=== PATIENT | male | born 1950 | race Caucasian/White ===

== ENCOUNTER 2024-07-12 10:28 | Emergency (ER) | payer MEDICARE ==
[~2024-07-12] VITALS: Ht 157.5 cm; Wt 76.6 kg
[2024-07-12] MEDS ORDERED: ISOVUE-370 76% 100ML VIAL As Ordered ONE (10:54)
[2024-07-12] MEDS: fentaNYL 100 MCG/2 ML INJECTION IV PRN (11:10)
[2024-07-12] MEDS: NS (Normal Saline) 0.9% 1,000 ML IV ONE (11:11)
[2024-07-12] MEDS: NITROGLYCERIN/D5W 100MCG/ML 25 MG in IV 1 EA IV SCH (11:13)
[2024-07-12] MEDS: HEPARIN SOD (PORCINE) 5000UNITS/ML 1ML VIAL/SYRINGE IV ONE (11:25)
[2024-07-12] MEDS: CLOPIDOGREL 300 MG TAB (PLAVIX) PO ONE (11:26)
[2024-07-12] MEDS: FAMOTIDINE 20 MG TAB PO ONE (11:26)
[2024-07-12] MEDS: HEPARIN DRIP 25,000 UNITS in IV 1 EA IV SCH (11:26)
[2024-07-12 11:33] LABS: INR 0.98; PROTHROMBIN TIME 13.3 SECONDS (12.5-14.5)
[2024-07-12] MEDS: TENECTEPLASE 50 MG/10 ML VIAL IV STA (11:37)
[2024-07-12 11:47] LABS: CK-MB VALUE MASS 5.9 NG/ML (<3.6)
[2024-07-12 11:49] VITALS: BP 108/61; TEMP 96.7
[2024-07-12 11:50] LABS: ALBUMIN 3.7 G/DL (3.2-5.2); BILIRUBIN,DIRECT 0.3 MG/DL (<0.4); BILIRUBIN,TOTAL 0.9 MG/DL (0.3-1.2); CALCIUM LEVEL 9.4 MG/DL (8.3-10.6); CREATININE FOR GFR 1.31 MG/DL (0.70-1.30); GLOMERULAR FILTRATION RATE 57.1 (>42); TOTAL PROTEIN 6.4 G/DL (5.7-8.2)
[2024-07-12 11:51] VITALS: O2SAT 95
[2024-07-12 11:51] LABS: THYROID STIMULATING HORMONE 1.529 uIU/ML (0.55-4.78)
[2024-07-12 11:52] LABS: FREE T4 1.3 NG/DL (0.89-1.76)
[2024-07-12 11:55] LABS: BASO % 0.6 % (0.0-1.0); EOS # 0.1 10^3/uL (0.0-0.5); EOS % 1.2 % (0.0-3.0); HEMATOCRIT 44.9 % (42.0-52.0); HEMOGLOBIN 14.7 g/dl (13.5-17.5); LYMPH # 1.9 10^3/uL (1.5-5.0); LYMPH % 29.3 % (24.0-44.0); MEAN CORPUSCULAR HEMOGLOBIN 30.4 pg (27.0-33.0); MEAN CORPUSCULAR HGB CONC 32.7 g/dl (32.0-36.5); MONO # 0.5 10^3/uL (0.0-0.8); MONO % 7.5 % (2.0-8.0); NEUTROPHILS # 4.1 10^3/uL (1.5-8.5); NEUTROPHILS % 61.1 % (36.0-66.0); PLATELET COUNT, AUTOMATED 209 10^3/uL (150-450); RED BLOOD COUNT 4.83 10^6/uL (4.30-6.10); WHITE BLOOD COUNT 6.6 10^3/uL (4.0-10.0)
[2024-07-12 12:10] LABS: MB/CK RELATIVE INDEX 4.95 (< OR =4)
== END 2024-07-12 12:11 | disposition short-term general hospital (02) ==
LOC: M ED 10:28 → EDBD 10:28 → M ED 12:11
DX: I21.3 ST elevation (STEMI) myocardial infarction of unspecified site (principal); I25.119 Atherosclerotic heart disease of native coronary artery with unspecified angina pectoris; I25.2 Old myocardial infarction; F10.10 Alcohol abuse, uncomplicated
CPT/HCPCS: 71045; 71275; 80047; 80048; 80076; 82550; 82553; 83690; 83880; 84439; 84443; 84484; 85025; 85610; 85730; 93005; 93041; 94760; 96365; 96375; 96376; 99291; 99292; J2305; J3010; J3101; Q9967

== ENCOUNTER 2024-08-28 16:17 | Observation (INO) | payer MEDICARE ==
[~2024-08-28] VITALS: Ht 177.8 cm; Wt 65.8 kg
[2024-08-28] MEDS ORDERED: ISOVUE-370 76% 100 ML VIAL As Ordered ONE (16:40)
[2024-08-28 17:00] LABS: BASO % 0.5 % (0.0-1.0); EOS # 0.1 10^3/uL (0.0-0.5); EOS % 0.8 % (0.0-3.0); HEMATOCRIT 46.9 % (42.0-52.0); HEMOGLOBIN 16.4 g/dl (13.5-17.5); LYMPH # 1.2 10^3/uL (1.5-5.0); LYMPH % 15.5 % (24.0-44.0); MEAN CORPUSCULAR HEMOGLOBIN 32.1 pg (27.0-33.0); MEAN CORPUSCULAR VOLUME 91.8 fl (80.0-96.0); MONO # 0.6 10^3/uL (0.0-0.8); MONO % 7.4 % (2.0-8.0); NEUTROPHILS % 75.5 % (36.0-66.0); PLATELET COUNT, AUTOMATED 257 10^3/uL (150-450); RED BLOOD COUNT 5.11 10^6/uL (4.30-6.10)
[2024-08-28] MEDS: NS 500 ML IV ONE (17:46)
[2024-08-28 18:15] LABS: INR 1.03; PARTIAL THROMBOPLASTIN TIME 20.5 SECONDS (24.8-34.2); PROTHROMBIN TIME 13.8 SECONDS (12.5-14.5)
[2024-08-28] MEDS: NS (Normal Saline) 0.9% 1,000 ML IV SCH (18:19)
[2024-08-28 18:22] LABS: MAGNESIUM LEVEL 1.8 MG/DL (1.8-2.4)
[2024-08-28] MEDS ORDERED: ROSU40TA81 PO (18:22)
[2024-08-28] MEDS ORDERED: AMIO200T54 PO (18:22)
[2024-08-28] MEDS ORDERED: PANT40TA29 PO (18:24)
[2024-08-28] MEDS ORDERED: ASPI81TA26 PO (18:24)
[2024-08-28] MEDS ORDERED: CLOP75TA2 PO (18:24)
[2024-08-28] MEDS ORDERED: LOTR52CA PO (18:26)
[2024-08-28] MEDS ORDERED: METO1TAB32 PO (18:26)
[2024-08-28] MEDS ORDERED: HOME MED LIST COMPLETE! XX SCH (18:30)
[2024-08-28] MEDS ORDERED: MAALOX 30 ML SUSP *UDC PO PRN (20:05)
[2024-08-28] MEDS ORDERED: MOM 30 ML SUSPENSION UDC PO PRN (20:05)
[2024-08-28 20:39] LABS: ALBUMIN 2.8 G/DL (3.2-5.2); BILIRUBIN,DIRECT 0.3 MG/DL (<0.4); BILIRUBIN,TOTAL 0.9 MG/DL (0.3-1.2); CALCIUM LEVEL 6.4 MG/DL (8.3-10.6); CK-MB VALUE MASS 1.1 NG/ML (<3.6); CREATININE FOR GFR 1.4 MG/DL (0.70-1.30); GLOMERULAR FILTRATION RATE 52.7 (>42); MB/CK RELATIVE INDEX 1.5 (< OR =4); POTASSIUM SERUM 5.7 MMOL/L (3.5-5.1)
[2024-08-28 22:50] VITALS: BP 120/58; TEMP 97.2; O2SAT 95
[2024-08-28] MEDS: DOCUSATE SODIUM 100 MG CAPSULE PO SCH (22:50)
[2024-08-28] MEDS: ACETAMINOPHEN 325 MG TAB PO PRN (22:58)
[2024-08-29] VITALS (12 sets, daily range): BP systolic 90–99; BP diastolic 54–71; TEMP 97–98.7; O2SAT 96–99
[2024-08-29 07:14] LABS: HEMATOCRIT 42.5 % (42.0-52.0); HEMOGLOBIN 14.2 g/dl (13.5-17.5); MEAN CORPUSCULAR HEMOGLOBIN 31.4 pg (27.0-33.0); MEAN CORPUSCULAR HGB CONC 33.4 g/dl (32.0-36.5); PLATELET COUNT, AUTOMATED 191 10^3/uL (150-450); RED BLOOD COUNT 4.52 10^6/uL (4.30-6.10); WHITE BLOOD COUNT 6.7 10^3/uL (4.0-10.0)
[2024-08-29 07:44] LABS: ALBUMIN 3.1 G/DL (3.2-5.2); BILIRUBIN,TOTAL 1.1 MG/DL (0.3-1.2); CALCIUM LEVEL 8.6 MG/DL (8.3-10.6); CREATININE FOR GFR 1.76 MG/DL (0.70-1.30); GLOMERULAR FILTRATION RATE 40.1 (>42); MAGNESIUM LEVEL 2.1 MG/DL (1.8-2.4); POTASSIUM SERUM 3.5 MMOL/L (3.5-5.1); TOTAL PROTEIN 5.2 G/DL (5.7-8.2)
[2024-08-29] MEDS: ASPIRIN 81 MG ENTERIC TABLET PO SCH (09:21)
[2024-08-29] MEDS: PANTOPRAZOLE 40MG TAB PO SCH (09:21)
[2024-08-29] MEDS: CLOPIDOGREL 75 MG TAB PO SCH (09:21)
[2024-08-29] MEDS: ROSUVASTATIN 10 MG TAB PO SCH (09:22)
[2024-08-29] MEDS: HEPARIN SOD 5000 UNITS/ML 1 ML VIAL/SYRINGE SC SCH (09:22)
[2024-08-29] MEDS: NS 500 ML IV ONE ×2 (11:30→12:00)
[2024-08-29] MEDS: MIDODRINE 5 MG TAB PO ONE ×2 (11:53→20:56)
[2024-08-29 14:39] LABS: CALCIUM LEVEL 8.1 MG/DL (8.3-10.6); CREATININE FOR GFR 1.76 MG/DL (0.70-1.30); GLOMERULAR FILTRATION RATE 40.1 (>42); POTASSIUM SERUM 3.3 MMOL/L (3.5-5.1)
[2024-08-29] MEDS ORDERED: MIDO5TA PO (14:49)
[2024-08-29] MEDS: KCL 10MEQ/100ML SWI (KRUN) 10 MEQ in IV 1 EA IV SCH (16:17)
[2024-08-29] MEDS: POTASSIUM CHLORIDE 10MEQ SR TABLET PO ONE (17:28)
[2024-08-30] VITALS (8 sets, daily range): BP systolic 76–114; BP diastolic 52–67; TEMP 96.3–97.8; O2SAT 96–100
[2024-08-30 07:39] LABS: BASO # 0.1 10^3/uL (0.0-0.2); BASO % 0.9 % (0.0-1.0); EOS # 0.1 10^3/uL (0.0-0.5); HEMATOCRIT 41.7 % (42.0-52.0); HEMOGLOBIN 13.4 g/dl (13.5-17.5); LYMPH # 1.5 10^3/uL (1.5-5.0); LYMPH % 26.1 % (24.0-44.0); MEAN CORPUSCULAR HEMOGLOBIN 30.5 pg (27.0-33.0); MEAN CORPUSCULAR HGB CONC 32.1 g/dl (32.0-36.5); MEAN CORPUSCULAR VOLUME 94.8 fl (80.0-96.0); MONO # 0.4 10^3/uL (0.0-0.8); MONO % 6.7 % (2.0-8.0); NEUTROPHILS # 3.6 10^3/uL (1.5-8.5); NEUTROPHILS % 64.1 % (36.0-66.0); PLATELET COUNT, AUTOMATED 203 10^3/uL (150-450); WHITE BLOOD COUNT 5.6 10^3/uL (4.0-10.0)
[2024-08-30 07:58] LABS: CALCIUM LEVEL 8.6 MG/DL (8.3-10.6); CREATININE FOR GFR 1.79 MG/DL (0.70-1.30); GLOMERULAR FILTRATION RATE 39.3 (>42); MAGNESIUM LEVEL 2.1 MG/DL (1.8-2.4); POTASSIUM SERUM 4.2 MMOL/L (3.5-5.1)
[2024-08-30] MEDS: MIDODRINE 5 MG TAB PO SCH ×2 (08:42→16:06)
[2024-08-30] MEDS: NS (Normal Saline) 0.9% 1,000 ML IV ONE (12:53)
[2024-08-30] MEDS: MIDODRINE 5 MG TAB PO ONE (13:18)
[2024-08-30 14:38] LABS: APPEARANCE, URINE CLOUDY (CLEAR); BACTERIA, URINE AUTO NEGATIVE (NEGATIVE); BILIRUBIN, URINE AUTO NEGATIVE (NEGATIVE); BLOOD, URINE BLOOD 1+ (NEGATIVE); COLOR, URINE AMBER (YELLOW); GLUCOSE, URINE (UA) AUTO NEGATIVE (NEGATIVE); GRANULAR CAST, URINE AUTO 7 /LPF; KETONE, URINE AUTO TRACE mg/dL (NEGATIVE); LEUKOCYTE ESTERASE, URINE AUTO NEGATIVE (NEGATIVE); MUCUS, URINE LARGE (NEGATIVE); NITRITE, URINE AUTO NEGATIVE (NEGATIVE); PROTEIN, URINE AUTO 2+ mg/dL (NEGATIVE); RBC, URINE AUTO 6 /HPF (0-3); SPECIFIC GRAVITY URINE AUTO 1.023 (1.002-1.035); SQUAMOUS EPITHELIAL CELL UR AU 1 /HPF (0-6); WBC, URINE AUTO 21 /HPF (0-3)
[2024-08-30] MEDS ORDERED: MIDO5TA PO (17:32)
== END 2024-08-30 16:50 | disposition home or self-care (01) ==
LOC: EDBD 16:17 → M ED 16:17 → UNDOADMOB 20:04 → INTOOBSV 20:04 → M ED INP 20:04 → M MS4PR 22:42 → M ED INP 22:42 → M MS4PR 22:42
PROVIDERS: ADMIT Student in an Organized Health Care Education/Training Program; ATTEND Student in an Organized Health Care Education/Training Program
DX: R55 Syncope and collapse (principal); R94.31 Abnormal electrocardiogram [ECG] [EKG]; R00.1 Bradycardia, unspecified; R42 Dizziness and giddiness; N17.9 Acute kidney failure, unspecified; N28.89 Other specified disorders of kidney and ureter; E87.6 Hypokalemia; I25.10 Atherosclerotic heart disease of native coronary artery without angina pectoris; Z95.1 Presence of aortocoronary bypass graft; K21.9 Gastro-esophageal reflux disease without esophagitis; I50.32 Chronic diastolic (congestive) heart failure; N40.0 Benign prostatic hyperplasia without lower urinary tract symptoms; M17.0 Bilateral primary osteoarthritis of knee; I11.0 Hypertensive heart disease with heart failure; E55.9 Vitamin D deficiency, unspecified; E78.5 Hyperlipidemia, unspecified; Z96.642 Presence of left artificial hip joint; Z96.653 Presence of artificial knee joint, bilateral; Z90.79 Acquired absence of other genital organ(s); Z79.899 Other long term (current) drug therapy; Z79.82 Long term (current) use of aspirin; Z79.02 Long term (current) use of antithrombotics/antiplatelets; Z11.9 Encounter for screening for infectious and parasitic diseases, unspecified
CPT/HCPCS: 36415; 70450; 71045; 76775; 80047; 80048; 80053; 80076; 81001; 82550; 82553; 83735; 84484; 85025; 85027; 85610; 85730; 93005; 93041; 93306; 93880; 94760; 96361; 96365; 97161; 99285; G0378

== ENCOUNTER 2024-09-13 17:37 | Inpatient (IN) | payer MEDICARE ==
[~2024-09-13] VITALS: Ht 177.8 cm; Wt 69.6 kg
[~2024-09-13 17:37] MED LIST: AMIO200T54 PO; ASPI81TA26 PO; CLOP75TA2 PO; LOTR52CA PO; METO1TAB32 PO; MIDO5TA PO; PANT40TA29 PO; ROSU40TA81 PO
[2024-09-13 18:33] LABS: BASO # 0.0 10^3/uL (0.0-0.2); BASO % 0.2 % (0.0-1.0); EOS # 0.0 10^3/uL (0.0-0.5); EOS % 0.1 % (0.0-3.0); LYMPH # 0.6 10^3/uL (1.5-5.0); LYMPH % 5.7 % (24.0-44.0); MONO # 0.5 10^3/uL (0.0-0.8); MONO % 4.3 % (2.0-8.0); NEUTROPHILS # 9.6 10^3/uL (1.5-8.5); NEUTROPHILS % 89.4 % (36.0-66.0); PLATELET COUNT, AUTOMATED 255 10^3/uL (150-450)
[2024-09-13 18:44] LABS: INR 0.89
[2024-09-13 18:54] LABS: ALT/SGPT 478.0 U/L (7.0-40); AST/SGOT 259.0 U/L (<34); CALCIUM LEVEL 9.5 MG/DL (8.3-10.6); CARBON DIOXIDE LEVEL 25.0 MMOL/L (20-31); CHLORIDE LEVEL 105.0 MMOL/L (98-107); CK-MB VALUE MASS 2.4 NG/ML (<3.6); CREATININE FOR GFR 1.37 MG/DL (0.70-1.30); GLOMERULAR FILTRATION RATE 54.1 (>42); POTASSIUM SERUM 3.3 MMOL/L (3.5-5.1); SODIUM LEVEL 142.0 MMOL/L (136-145)
[2024-09-13 18:58] LABS: CPK CREATINE PHOSPHOKINASE 27.0 U/L (46-171); MB/CK RELATIVE INDEX 8.88 (< OR =4)
[2024-09-13] MEDS: ASPIRIN 81 MG CHEWABLE TABLET PO ONE (19:13)
[2024-09-13] MEDS: POTASSIUM CHLORIDE 10MEQ SR TABLET PO ONE (19:14)
[2024-09-13] MEDS: NITROGLYCERIN 0.4 MG SUBL TABLET SL PRN (19:17)
[2024-09-13] MEDS ORDERED: ISOVUE-370 76% 100 ML VIAL As Ordered ONE (19:22)
[2024-09-13 20:00] LABS: CK-MB VALUE MASS 1.9 NG/ML (<3.6)
[2024-09-13 20:04] LABS: CPK CREATINE PHOSPHOKINASE 18.0 U/L (46-171); MB/CK RELATIVE INDEX 10.55 (< OR =4)
[2024-09-13] MEDS: LIDOCAINE VISCOUS 2% SOLN 15 ML UDC PO ONE (21:14)
[2024-09-13] MEDS: MAALOX 30 ML SUSP *UDC PO ONE (21:14)
[2024-09-13] MEDS: PANTOPRAZOLE 40MG VIAL IV ONE (21:15)
[2024-09-13 22:10] LABS: CK-MB VALUE MASS 2.0 NG/ML (<3.6)
[2024-09-13 22:11] LABS: CPK CREATINE PHOSPHOKINASE 17.0 U/L (46-171); MB/CK RELATIVE INDEX 11.76 (< OR =4)
[2024-09-13] MEDS: PIPERACILLIN/TAZOBACTAM SOD 4.5 GM in DEXTROSE 5% (D5W) ADV/MINI-BAG 50 ML IV ONE (23:07)
[2024-09-14] VITALS (8 sets, daily range): BP systolic 100–117; BP diastolic 55–73; TEMP 97.3–97.9; O2SAT 95–100
[2024-09-14] MEDS ORDERED: MORPHINE 2 MG/ML 1 ML VIAL IV PRN (00:10)
[2024-09-14] MEDS ORDERED: MORPHINE 4 MG/ML 1 ML VIAL IV PRN (00:10)
[2024-09-14] MEDS ORDERED: NALOXONE INJ 0.4 MG/1 ML VIAL IV PRN (00:10)
[2024-09-14] MEDS: ACETAMINOPHEN *IV* 1,000 MG in IV 1 EA IV SCH (01:01)
[2024-09-14] MEDS: RAMELTEON 8 MG TAB PO PRN (01:01)
[2024-09-14] MEDS: NS (Normal Saline) 0.9% 1,000 ML IV SCH (01:03)
[2024-09-14] MEDS: PIPERACILLIN/TAZOBACTAM SOD 3.375 GM in DEXTROSE 5% (D5W) ADV/MINI-BAG 50 ML IV SCH (06:06)
[2024-09-14] MEDS ORDERED: AMLO2.5C6 PO (06:29)
[2024-09-14] MEDS ORDERED: MIDO5TA PO (06:29)
[2024-09-14] MEDS ORDERED: HOME MED LIST COMPLETE! XX SCH (06:35)
[2024-09-14 11:57] LABS: BASO # 0.0 10^3/uL (0.0-0.2); BASO % 0.2 % (0.0-1.0); EOS # 0.0 10^3/uL (0.0-0.5); EOS % 0.1 % (0.0-3.0); LYMPH # 0.9 10^3/uL (1.5-5.0); LYMPH % 5.9 % (24.0-44.0); MONO # 0.9 10^3/uL (0.0-0.8); MONO % 5.9 % (2.0-8.0); NEUTROPHILS # 13.8 10^3/uL (1.5-8.5); NEUTROPHILS % 87.5 % (36.0-66.0); PLATELET COUNT, AUTOMATED 246 10^3/uL (150-450)
[2024-09-14 12:38] LABS: ALT/SGPT 356.0 U/L (7.0-40); AST/SGOT 141.0 U/L (<34); CALCIUM LEVEL 8.9 MG/DL (8.3-10.6); CARBON DIOXIDE LEVEL 23.0 MMOL/L (20-31); CHLORIDE LEVEL 107.0 MMOL/L (98-107); CREATININE FOR GFR 1.27 MG/DL (0.70-1.30); GLOMERULAR FILTRATION RATE 59.3 (>42); POTASSIUM SERUM 4.6 MMOL/L (3.5-5.1); SODIUM LEVEL 143.0 MMOL/L (136-145)
[2024-09-14] MEDS: PANTOPRAZOLE 40MG VIAL IV SCH (14:21)
[2024-09-14] MEDS: KETOROLAC 30 MG/ML 1 ML VIAL IV PRN (16:47)
[2024-09-14] MEDS: MIDODRINE 5 MG TAB PO SCH (16:48)
[2024-09-14] MEDS: ACETAMINOPHEN 325 MG TAB PO PRN (21:04)
[2024-09-15 04:14] VITALS: BP 95/63; TEMP 97.6; O2SAT 95
[2024-09-15 06:09] LABS: PLATELET COUNT, AUTOMATED 190 10^3/uL (150-450)
[2024-09-15 06:37] LABS: ALT/SGPT 285.0 U/L (7.0-40); AST/SGOT 103.0 U/L (<34); CALCIUM LEVEL 8.7 MG/DL (8.3-10.6); CARBON DIOXIDE LEVEL 20.0 MMOL/L (20-31); CHLORIDE LEVEL 108.0 MMOL/L (98-107); CREATININE FOR GFR 1.36 MG/DL (0.70-1.30); GLOMERULAR FILTRATION RATE 54.6 (>42); MAGNESIUM LEVEL 1.7 MG/DL (1.8-2.4); POTASSIUM SERUM 4.1 MMOL/L (3.5-5.1); SODIUM LEVEL 143.0 MMOL/L (136-145)
[2024-09-15] MEDS: ASPIRIN 81 MG ENTERIC TABLET PO SCH (08:37)
[2024-09-15] MEDS: MAG SULF 1GM/100ML (MAG RUN) 1 GM in IV 1 EA IV ONE (11:06)
[2024-09-15 12:00] VITALS: BP 88/52; TEMP 97.7; O2SAT 97
[2024-09-15] MEDS: NS (Normal Saline) 0.9% 1,000 ML IV ONE (14:59)
[2024-09-15] MEDS: NS (Normal Saline) 0.9% 1,000 ML IV SCH (18:51)
[2024-09-15 20:34] VITALS: BP 94/61; TEMP 97.9; O2SAT 95
[2024-09-16 04:27] VITALS: BP 92/59; TEMP 97.8; O2SAT 95
[2024-09-16 09:17] LABS: BASO # 0.0 10^3/uL (0.0-0.2); BASO % 0.2 % (0.0-1.0); EOS # 0.1 10^3/uL (0.0-0.5); EOS % 1.1 % (0.0-3.0); LYMPH # 0.8 10^3/uL (1.5-5.0); LYMPH % 6.5 % (24.0-44.0); MONO # 0.6 10^3/uL (0.0-0.8); MONO % 5.2 % (2.0-8.0); NEUTROPHILS # 10.5 10^3/uL (1.5-8.5); NEUTROPHILS % 86.4 % (36.0-66.0); PLATELET COUNT, AUTOMATED 180 10^3/uL (150-450)
[2024-09-16 09:43] LABS: ALT/SGPT 231.0 U/L (7.0-40); AST/SGOT 147.0 U/L (<34); CALCIUM LEVEL 8.0 MG/DL (8.3-10.6); CARBON DIOXIDE LEVEL 22.0 MMOL/L (20-31); CHLORIDE LEVEL 112.0 MMOL/L (98-107); CREATININE FOR GFR 1.6 MG/DL (0.70-1.30); GLOMERULAR FILTRATION RATE 44.9 (>42); MAGNESIUM LEVEL 2.1 MG/DL (1.8-2.4); POTASSIUM SERUM 3.7 MMOL/L (3.5-5.1); SODIUM LEVEL 146.0 MMOL/L (136-145)
[2024-09-16 12:00] VITALS: BP 90/52; TEMP 97.9; O2SAT 94
[2024-09-16] MEDS: ENOXAPARIN 40 MG/0.4 ML SYRINGE (J1650 PER 10MG) SC SCH (14:29)
[2024-09-16] MEDS: MIDODRINE 5 MG TAB PO SCH (16:22)
[2024-09-16 19:34] VITALS: BP 93/57; TEMP 97.9; O2SAT 92
[2024-09-17 03:49] VITALS: BP 104/64; TEMP 97.7; O2SAT 90
[2024-09-17 07:13] LABS: BASO # 0.0 10^3/uL (0.0-0.2); BASO % 0.3 % (0.0-1.0); EOS # 0.1 10^3/uL (0.0-0.5); EOS % 0.9 % (0.0-3.0); LYMPH # 0.8 10^3/uL (1.5-5.0); LYMPH % 8.9 % (24.0-44.0); MONO # 0.5 10^3/uL (0.0-0.8); MONO % 5.6 % (2.0-8.0); NEUTROPHILS # 7.9 10^3/uL (1.5-8.5); NEUTROPHILS % 84.0 % (36.0-66.0); PLATELET COUNT, AUTOMATED 204 10^3/uL (150-450)
[2024-09-17 07:40] LABS: ALT/SGPT 307 U/L (7.0-40); AST/SGOT 289 U/L (<34); CALCIUM LEVEL 7.8 MG/DL (8.3-10.6); CARBON DIOXIDE LEVEL 19 MMOL/L (20-31); CHLORIDE LEVEL 114 MMOL/L (98-107); CREATININE FOR GFR 1.49 MG/DL (0.70-1.30); GLOMERULAR FILTRATION RATE 48.9 (>42); MAGNESIUM LEVEL 2.1 MG/DL (1.8-2.4); POTASSIUM SERUM 3.7 MMOL/L (3.5-5.1); SODIUM LEVEL 144 MMOL/L (136-145)
[2024-09-17 09:24] LABS: HEPATITIS C VIRUS ABY INDEX 0.07 INDEX (<0.8)
[2024-09-17 12:00] VITALS: BP 108/67; TEMP 97.7; O2SAT 96
[2024-09-17 19:58] VITALS: BP 107/60; TEMP 97.9; O2SAT 92
[2024-09-18] VITALS (10 sets, daily range): BP systolic 95–120; BP diastolic 61–80; TEMP 97–97.7; O2SAT 90–95
[2024-09-18 05:48] LABS: BASO # 0.0 10^3/uL (0.0-0.2); BASO % 0.4 % (0.0-1.0); EOS # 0.2 10^3/uL (0.0-0.5); EOS % 1.7 % (0.0-3.0); LYMPH # 1.3 10^3/uL (1.5-5.0); LYMPH % 14.4 % (24.0-44.0); MONO # 0.6 10^3/uL (0.0-0.8); MONO % 6.5 % (2.0-8.0); NEUTROPHILS # 7.0 10^3/uL (1.5-8.5); NEUTROPHILS % 76.6 % (36.0-66.0); PLATELET COUNT, AUTOMATED 231 10^3/uL (150-450)
[2024-09-18 06:21] LABS: ALT/SGPT 315.0 U/L (7.0-40); AST/SGOT 270.0 U/L (<34); CALCIUM LEVEL 8.0 MG/DL (8.3-10.6); CARBON DIOXIDE LEVEL 19.0 MMOL/L (20-31); CHLORIDE LEVEL 113.0 MMOL/L (98-107); CREATININE FOR GFR 1.44 MG/DL (0.70-1.30); GLOMERULAR FILTRATION RATE 51.0 (>42); POTASSIUM SERUM 4.0 MMOL/L (3.5-5.1); SODIUM LEVEL 144.0 MMOL/L (136-145)
[2024-09-18] MEDS ORDERED: LIDOCAINE 2% 100 MG/5 ML SDV (FOR ANES.) As Ordered ONE (15:31)
[2024-09-18] MEDS ORDERED: SUGAMMADEX SODIUM 500 MG/5 ML VIAL As Ordered ONE (15:31)
[2024-09-18] MEDS ORDERED: dexAMETHasone 4 MG/ML 1 ML VIAL As Ordered ONE (15:31)
[2024-09-18] MEDS ORDERED: ROCURONIUM BROMIDE 50MG/5ML VIAL As Ordered ONE (15:31)
[2024-09-18] MEDS ORDERED: ONDANSETRON 4MG 2ML VIAL As Ordered ONE (15:31)
[2024-09-18] MEDS ORDERED: MIDAZOLAM INJ 2 MG/2 ML VIAL As Ordered ONE (15:34)
[2024-09-18] MEDS: INDOCYANINE GREEN 25 MG VIAL As Ordered ONE (16:00)
[2024-09-18] MEDS ORDERED: ACETAMINOPHEN 1000MG/100ML IV BAG As Ordered ONE (16:20)
[2024-09-18] MEDS ORDERED: PHENYLephrine 500MCG 5ML (100MCG/ML) SYRINGE As Ordered ONE (18:01)
[2024-09-18] MEDS ORDERED: HYDROMORPHONE HCL 0.5 MG/0.5 ML SYRINGE IV PRN (18:20)
[2024-09-18] MEDS: MORPHINE 4 MG/ML 1 ML VIAL IV PRN (20:12)
[2024-09-18] MEDS: ONDANSETRON 4MG 2ML VIAL IV PRN (20:14)
[2024-09-19] VITALS (9 sets, daily range): BP systolic 97–165; BP diastolic 61–104; TEMP 97.3–97.7; O2SAT 89–95
[2024-09-19] MEDS: NS 500 ML IV ONE (00:19)
[2024-09-19] MEDS: MORPHINE 2 MG/ML 1 ML VIAL IV PRN (05:37)
[2024-09-19 07:50] LABS: BASO # 0.0 10^3/uL (0.0-0.2); BASO % 0.1 % (0.0-1.0); EOS # 0.0 10^3/uL (0.0-0.5); EOS % 0.0 % (0.0-3.0); LYMPH # 0.6 10^3/uL (1.5-5.0); LYMPH % 6.5 % (24.0-44.0); MONO # 0.5 10^3/uL (0.0-0.8); MONO % 5.2 % (2.0-8.0); NEUTROPHILS # 8.0 10^3/uL (1.5-8.5); NEUTROPHILS % 87.5 % (36.0-66.0); PLATELET COUNT, AUTOMATED 271 10^3/uL (150-450)
[2024-09-19] MEDS: traMADol 50 MG TAB PO PRN (08:12)
[2024-09-19 08:29] LABS: ALT/SGPT 240.0 U/L (7.0-40); AST/SGOT 155.0 U/L (<34); CALCIUM LEVEL 7.7 MG/DL (8.3-10.6); CARBON DIOXIDE LEVEL 18.0 MMOL/L (20-31); CHLORIDE LEVEL 111.0 MMOL/L (98-107); CREATININE FOR GFR 1.37 MG/DL (0.70-1.30); GLOMERULAR FILTRATION RATE 54.1 (>42); POTASSIUM SERUM 4.4 MMOL/L (3.5-5.1); SODIUM LEVEL 142.0 MMOL/L (136-145)
[2024-09-19] MEDS: ROSUVASTATIN 10 MG TAB PO SCH (09:23)
[2024-09-19] MEDS: CLOPIDOGREL 75 MG TAB PO SCH (09:23)
[2024-09-19 18:32] LABS: PLATELET COUNT, AUTOMATED 358 10^3/uL (150-450)
[2024-09-19 18:55] LABS: ALT/SGPT 255.0 U/L (7.0-40); AST/SGOT 170.0 U/L (<34); CALCIUM LEVEL 8.3 MG/DL (8.3-10.6); CARBON DIOXIDE LEVEL 20.0 MMOL/L (20-31); CHLORIDE LEVEL 111.0 MMOL/L (98-107); CREATININE FOR GFR 1.51 MG/DL (0.70-1.30); GLOMERULAR FILTRATION RATE 48.2 (>42); POTASSIUM SERUM 4.4 MMOL/L (3.5-5.1); SODIUM LEVEL 144.0 MMOL/L (136-145)
[2024-09-19] MEDS: MORPHINE 2 MG/ML 1 ML VIAL IV ONE ×2 (19:17→23:11)
[2024-09-20] VITALS (18 sets, daily range): BP systolic 100–130; BP diastolic 66–90; TEMP 96.9–97.8; O2SAT 88–98
[2024-09-20 06:54] LABS: BASO # 0.0 10^3/uL (0.0-0.2); BASO % 0.1 % (0.0-1.0); EOS # 0.0 10^3/uL (0.0-0.5); EOS % 0.0 % (0.0-3.0); LYMPH # 0.4 10^3/uL (1.5-5.0); LYMPH % 1.9 % (24.0-44.0); MONO # 1.3 10^3/uL (0.0-0.8); MONO % 6.0 % (2.0-8.0); NEUTROPHILS # 19.5 10^3/uL (1.5-8.5); NEUTROPHILS % 90.9 % (36.0-66.0); PLATELET COUNT, AUTOMATED 338 10^3/uL (150-450)
[2024-09-20 07:14] LABS: ALT/SGPT 209.0 U/L (7.0-40); AST/SGOT 116.0 U/L (<34); CALCIUM LEVEL 8.2 MG/DL (8.3-10.6); CARBON DIOXIDE LEVEL 19.0 MMOL/L (20-31); CHLORIDE LEVEL 112.0 MMOL/L (98-107); CREATININE FOR GFR 1.74 MG/DL (0.70-1.30); GLOMERULAR FILTRATION RATE 40.6 (>42); POTASSIUM SERUM 4.1 MMOL/L (3.5-5.1); SODIUM LEVEL 147.0 MMOL/L (136-145)
[2024-09-20 08:38] LABS: CK-MB VALUE MASS 13.4 NG/ML (<3.6); CPK CREATINE PHOSPHOKINASE 151.0 U/L (46-171); MB/CK RELATIVE INDEX 8.87 (< OR =4)
[2024-09-20] MEDS: HEPARIN SOD 5000 UNITS/ML 1 ML VIAL/SYRINGE SQ SCH (09:41)
[2024-09-20] MEDS ORDERED: VANCOMYCIN HCL 1,000 MG, VIAL MATE ADAPTER 1 EACH in NS 250 ML IV SCH (10:25)
[2024-09-20] MEDS ORDERED: HEPARIN DRIP 25,000 UNITS in IV 1 EA IV SCH (11:15)
[2024-09-20] MEDS ORDERED: HEPARIN SOD 5000 UNITS/ML 1 ML VIAL/SYRINGE IV PRN (11:15)
[2024-09-20] MEDS ORDERED: MORPHINE 4 MG/ML 1 ML VIAL IV PRN (11:30)
[2024-09-20] MEDS: VANCOMYCIN HCL 1,500 MG, VIAL MATE ADAPTER 1 EACH in NS 500 ML IV ONE (12:20)
[2024-09-20 12:21] LABS: PLATELET COUNT, AUTOMATED 331 10^3/uL (150-450)
[2024-09-20] MEDS ORDERED: LIDOCAINE 1% MDV 20 ML VIAL As Ordered ONE (12:41)
[2024-09-20 12:50] LABS: CK-MB VALUE MASS 12.0 NG/ML (<3.6)
[2024-09-20 12:54] LABS: CPK CREATINE PHOSPHOKINASE 158.0 U/L (46-171); MB/CK RELATIVE INDEX 7.59 (< OR =4)
[2024-09-20] MEDS: HEPARIN DRIP 25,000 UNITS in IV 1 EA IV SCH (13:22)
[2024-09-20 13:32] LABS: APPEARANCE, BODY FLUID CLOUDY (CLEAR); PERITONEAL FL COLOR YELLOW (COLORLESS); SOURCE, BODY FLUID PERITONEAL
[2024-09-20] MEDS: FUROSEMIDE 40 MG/4 ML VIAL IV ONE (14:02)
[2024-09-20] MEDS ORDERED: LEVALBUTEROL 1.25 MG 0.5ML CONCENTRATE NEB NEB PRN (15:15)
[2024-09-20] MEDS: ASPIRIN 300 MG SUPP PR ONE (15:20)
[2024-09-20] MEDS: MORPHINE 2 MG/ML 1 ML VIAL IV PRN (15:21)
[2024-09-20 15:44] LABS: CALCIUM LEVEL 8.0 MG/DL (8.3-10.6); CARBON DIOXIDE LEVEL 20.0 MMOL/L (20-31); CHLORIDE LEVEL 111.0 MMOL/L (98-107); CREATININE FOR GFR 1.86 MG/DL (0.70-1.30); GLOMERULAR FILTRATION RATE 37.5 (>42); MAGNESIUM LEVEL 2.1 MG/DL (1.8-2.4); PHOSPHORUS LEVEL 3.6 MG/DL (2.4-5.1); POTASSIUM SERUM 3.9 MMOL/L (3.5-5.1); SODIUM LEVEL 144.0 MMOL/L (136-145)
[2024-09-20 17:21] LABS: CK-MB VALUE MASS 10.2 NG/ML (<3.6)
[2024-09-20 17:25] LABS: CPK CREATINE PHOSPHOKINASE 143.0 U/L (46-171); MB/CK RELATIVE INDEX 7.13 (< OR =4)
[2024-09-20 19:46] LABS: PLATELET COUNT, AUTOMATED 292 10^3/uL (150-450)
[2024-09-20 20:49] LABS: CK-MB VALUE MASS 10.1 NG/ML (<3.6)
[2024-09-20 20:54] LABS: CPK CREATINE PHOSPHOKINASE 157.0 U/L (46-171); MB/CK RELATIVE INDEX 6.43 (< OR =4)
[2024-09-20] MEDS: LR 1,000 ML IV SCH (21:47)
[2024-09-21] VITALS (41 sets, daily range): BP systolic 94–117; BP diastolic 50–81; TEMP 97.1–100.7; O2SAT 84–98
[2024-09-21 00:47] LABS: CK-MB VALUE MASS 12.3 NG/ML (<3.6)
[2024-09-21 00:48] LABS: CPK CREATINE PHOSPHOKINASE 173.0 U/L (46-171); MB/CK RELATIVE INDEX 7.1 (< OR =4)
[2024-09-21 02:57] LABS: INR 1.33
[2024-09-21] MEDS: MORPHINE 4 MG/ML 1 ML VIAL IV PRN (04:14)
[2024-09-21 05:05] LABS: BASO # 0.1 10^3/uL (0.0-0.2); BASO % 0.2 % (0.0-1.0); EOS # 0.0 10^3/uL (0.0-0.5); EOS % 0.1 % (0.0-3.0); LYMPH # 0.6 10^3/uL (1.5-5.0); LYMPH % 2.2 % (24.0-44.0); MONO # 0.8 10^3/uL (0.0-0.8); MONO % 2.9 % (2.0-8.0); NEUTROPHILS # 26.3 10^3/uL (1.5-8.5); NEUTROPHILS % 91.6 % (36.0-66.0); PLATELET COUNT, AUTOMATED 306 10^3/uL (150-450)
[2024-09-21 05:25] LABS: ALT/SGPT 152.0 U/L (7.0-40); AST/SGOT 74.0 U/L (<34); CALCIUM LEVEL 8.1 MG/DL (8.3-10.6); CARBON DIOXIDE LEVEL 20.0 MMOL/L (20-31); CHLORIDE LEVEL 111.0 MMOL/L (98-107); CREATININE FOR GFR 2.19 MG/DL (0.70-1.30); GLOMERULAR FILTRATION RATE 30.8 (>42); POTASSIUM SERUM 3.8 MMOL/L (3.5-5.1); SODIUM LEVEL 148.0 MMOL/L (136-145)
[2024-09-21 05:32] LABS: CK-MB VALUE MASS 10.9 NG/ML (<3.6)
[2024-09-21 05:40] LABS: CPK CREATINE PHOSPHOKINASE 162.0 U/L (46-171); MB/CK RELATIVE INDEX 6.72 (< OR =4)
[2024-09-21 08:18] LABS: CK-MB VALUE MASS 13.6 NG/ML (<3.6)
[2024-09-21 08:25] LABS: CPK CREATINE PHOSPHOKINASE 187.0 U/L (46-171); MB/CK RELATIVE INDEX 7.27 (< OR =4)
[2024-09-21] MEDS: FUROSEMIDE 100 MG/10 ML VIAL IV ONE (08:29)
[2024-09-21] MEDS ORDERED: VANCOMYCIN HCL 750 MG, VIAL MATE ADAPTER 1 EACH in NS 250 ML IV SCH (09:00)
[2024-09-21 09:26] LABS: INR 1.35
[2024-09-21] MEDS: ASPIRIN 300 MG SUPP PR SCH (10:19)
[2024-09-21] MEDS: VANCOMYCIN HCL 750 MG, VIAL MATE ADAPTER 1 EACH in NS 250 ML IV SCH (10:22)
[2024-09-21] MEDS: FUROSEMIDE injection 100 MG, VIAL 2 BAG 13MM ADAPTER 1 EACH in NS 100 ML IV SCH (11:27)
[2024-09-21 12:39] LABS: CK-MB VALUE MASS 10.7 NG/ML (<3.6)
[2024-09-21 13:00] LABS: CPK CREATINE PHOSPHOKINASE 175.0 U/L (46-171); MB/CK RELATIVE INDEX 6.11 (< OR =4)
[2024-09-21] MEDS: ACETAMINOPHEN 650 MG SUPP PR PRN (16:30)
[2024-09-21 17:13] LABS: CK-MB VALUE MASS 7.6 NG/ML (<3.6)
[2024-09-21 17:24] LABS: CPK CREATINE PHOSPHOKINASE 155.0 U/L (46-171); MB/CK RELATIVE INDEX 4.9 (< OR =4)
[2024-09-21 20:52] LABS: CK-MB VALUE MASS 7.0 NG/ML (<3.6)
[2024-09-21 20:56] LABS: CPK CREATINE PHOSPHOKINASE 153.0 U/L (46-171); MB/CK RELATIVE INDEX 4.57 (< OR =4)
[2024-09-21] MEDS: MEROPENEM 2 GM in SODIUM CHLORIDE 0.9% INJ 100 ML IV SCH (21:25)
[2024-09-21 22:27] LABS: KETONE, URINE AUTO RFX NEGATIVE (NEGATIVE); LEUKOCYTE ESTERASE UR AUTO RFX NEGATIVE (NEGATIVE); MUCUS, URINE RFX SMALL (NEGATIVE); NITRITE, URINE AUTO RFX NEGATIVE (NEGATIVE); RBC, URINE AUTO RFX 6 /HPF (0-3); SQUAM EPITHELIAL CELL UR AURFX 0 /HPF (0-6); WBC, URINE AUTO RFX 1 /HPF (0-3)
[2024-09-21] MEDS: MORPHINE 2 MG/ML 1 ML VIAL IV PRN (22:33)
[2024-09-22] VITALS (21 sets, daily range): BP systolic 96–104; BP diastolic 57–66; TEMP 96.8–98.4; O2SAT 89–98
[2024-09-22 06:04] LABS: INR 1.37
[2024-09-22 06:06] LABS: BASO # 0.0 10^3/uL (0.0-0.2); BASO % 0.2 % (0.0-1.0); EOS # 0.0 10^3/uL (0.0-0.5); EOS % 0.0 % (0.0-3.0); LYMPH # 0.8 10^3/uL (1.5-5.0); LYMPH % 3.3 % (24.0-44.0); MONO # 0.4 10^3/uL (0.0-0.8); MONO % 1.8 % (2.0-8.0); NEUTROPHILS # 21.6 10^3/uL (1.5-8.5); NEUTROPHILS % 93.9 % (36.0-66.0); PLATELET COUNT, AUTOMATED 246 10^3/uL (150-450)
[2024-09-22 06:21] LABS: ALT/SGPT 103.0 U/L (7.0-40); AST/SGOT 59.0 U/L (<34); CALCIUM LEVEL 8.1 MG/DL (8.3-10.6); CARBON DIOXIDE LEVEL 24.0 MMOL/L (20-31); CHLORIDE LEVEL 107.0 MMOL/L (98-107); CREATININE FOR GFR 2.76 MG/DL (0.70-1.30); GLOMERULAR FILTRATION RATE 23.4 (>42); POTASSIUM SERUM 3.4 MMOL/L (3.5-5.1); SODIUM LEVEL 148.0 MMOL/L (136-145)
[2024-09-22] MEDS: VANCOMYCIN HCL 500 MG in DEXTROSE 5% (D5W) MINI-BAG PLU 100 ML IV SCH (09:47)
[2024-09-22] MEDS: KCL 10MEQ/100ML SWI (KRUN) 10 MEQ in IV 1 EA IV ONE (10:32)
== END 2024-09-22 11:08 | disposition short-term general hospital (02) | DRG 417 ==
LOC: M ED 17:37 → M ED INP 23:36 → M MS5PR 09-14 00:27 → M PCU 09-20 10:00
PROVIDERS: ADMIT Family Medicine; ATTEND Internal Medicine
PROC: 8E0W4CZ Robotic Assisted Procedure of Trunk Region, Percutaneous Endoscopic Approach (ICD-10-PCS; 2024-09-18)
PROC: 0FT44ZZ Resection of Gallbladder, Percutaneous Endoscopic Approach (ICD-10-PCS; principal; 2024-09-18 16:30)
PROC: B246ZZZ Ultrasonography of Right and Left Heart (ICD-10-PCS; 2024-09-20)
PROC: 0W9G3ZZ Drainage of Peritoneal Cavity, Percutaneous Approach (ICD-10-PCS; 2024-09-20)
DX: K81.0 Acute cholecystitis (principal); J18.9 Pneumonia, unspecified organism; A41.9 Sepsis, unspecified organism; J96.01 Acute respiratory failure with hypoxia; I50.23 Acute on chronic systolic (congestive) heart failure; I21.4 Non-ST elevation (NSTEMI) myocardial infarction; J98.11 Atelectasis; R18.8 Other ascites; K56.7 Ileus, unspecified; I47.20 Ventricular tachycardia, unspecified; I13.0 Hypertensive heart and chronic kidney disease with heart failure and stage 1 through stage 4 chronic kidney disease, or unspecified chronic kidney disease; N17.9 Acute kidney failure, unspecified; E87.0 Hyperosmolality and hypernatremia; E46 Unspecified protein-calorie malnutrition; I24.89 Other forms of acute ischemic heart disease; R74.01 Elevation of levels of liver transaminase levels; E87.6 Hypokalemia; R94.31 Abnormal electrocardiogram [ECG] [EKG]; E78.5 Hyperlipidemia, unspecified; I25.2 Old myocardial infarction; N18.30 Chronic kidney disease, stage 3 unspecified; K21.9 Gastro-esophageal reflux disease without esophagitis; I95.89 Other hypotension; N40.0 Benign prostatic hyperplasia without lower urinary tract symptoms; Z95.1 Presence of aortocoronary bypass graft; Z96.653 Presence of artificial knee joint, bilateral; Z96.642 Presence of left artificial hip joint; Z79.82 Long term (current) use of aspirin; Z79.02 Long term (current) use of antithrombotics/antiplatelets